=== PATIENT | female | born 1945 | race Caucasian/White ===

== ENCOUNTER 2016-09-03 10:37 | Inpatient (IN) | payer MEDICARE ==
--- NOTE | ~2016-09-03 | DS ---
Discharge Summary [facility] [address] [place]. [address] NAME: AMBER EARLY : 45 STATUS : DIS IN PAT#: [id number] AGE: 71 ADM/REG DATE : 09/03/16 MR#: [id number] REPORT SERV DATE: 09/05/16 DICTATED BY: YARA GUO DATE: 09/04/16 REPORT STATUS : Draft TRANSCRIBED BY: MODL DATE: 09/04/16 ADMISSION DATE: 09/03/2016 DISCHARGE DATE: 09/04/2016 The patient is a 71-year-old female with a history of diabetes, hypertension, and depression, who was a direct admit from her physician's office after a concerning CT finding. For further details, please refer to H and P dictated by me on 09/03/2016. The patient was sent by her primary care physician to obtain a CT secondary to abdominal pain. The abdominal CT was concerning for what represented a cecal bascule. A water soluble contrast enema was recommended. Status post procedure, the patient was recommended to have a surgical evaluation to determine the need of surgery due to findings noted on the water soluble contrast enema. Please refer to the study that was done on 09/03/2016. The patient was subsequently evaluated by Surgery from surgery evaluation. There was no indication for surgical intervention at this point, given that the patient's abdominal pain had resolved. The patient was also subsequently seen again today by Surgery and was recommended that the patient have a colonoscopy at an outpatient setting, to rule out any abnormalities. The patient has remained hemodynamically stable. She has tolerated p.o. diet. Her abdominal pain is completely resolved. Given no plans for surgical intervention at this time, the patient will be discharged home to follow up with her primary care physician, GI and Surgery as planned. Plan has been discussed with the patient who voices understanding and is agreeable with this plan. DISCHARGE DIAGNOSIS: 1. Abdominal pain. 2. Hypertension. 3. Diabetes type 2. 4. Depression. DISCHARGE EXAM: VITAL SIGNS: Blood pressure 131/66, pulse of 73, respirations of 16, and O2 saturation 98% on room air. GENERAL: The patient is sitting in bed, appears stated age, in no acute distress. HEENT: Normocephalic, atraumatic. Extraocular motors intact. Moist oral mucosa. NECK: Trachea midline and symmetric. No thyromegaly noted. No JVD present. CHEST: Nontender to palpation. CARDIOVASCULAR: Regular rate and rhythm. S1, S2. No murmurs, rubs, or gallops. LUNGS: Clear to auscultation bilaterally. No added breath sounds. No wheezing, rales, or rhonchi. ABDOMEN: Positive bowel sounds. Nontender. Nondistended. No masses palpated. EXTREMITIES: No cyanosis, no clubbing, no edema. NEUROLOGIC: Alert and oriented x3. No focal deficits appreciated. DISCHARGE MEDICATIONS: Her home medications were continued with no addition of medications. Her medication includes 1. Lisinopril 10 mg p.o. daily. 2. Trulicity 0.5 mg subcu q.7 days. 3. Metformin 1000 mg p.o. twice a day. Discharge Summary [address] [address] NAME: AMBER EARLY : 45 STATUS : DIS IN PAT#: [id number] AGE: 71 ADM/REG DATE : 09/03/16 MR#: [id number] REPORT SERV DATE: 09/05/16 DICTATED BY: YARA GUO DATE: 09/04/16 REPORT STATUS : Draft TRANSCRIBED BY: YUMIKO DATE: 09/04/16 4. Gabapentin 300 mg p.o. at bedtime. 5. Pravastatin 40 mg p.o. at bedtime. 6. Effexor XR 150 mg p.o. every morning. 7. Vitamin D 1200 International Units p.o. every morning. 8. [place] Thyroid 30 mg p.o. Wednesday, Wednesday, Wednesday, and mornings. [place] Thyroid 60 mg on Wednesday, Wednesday, and Wednesday. CONSULTANTS: Surgery was consulted. PROCEDURES: The patient had a CT abdomen and pelvis on 09/03/2016. The patient had water-soluble contrast enema on 09/03/2016. DISPOSITION: The patient will be discharged home to follow up with primary care physician. ACTIVITY: As tolerated. DIET: Diabetic diet. Greater than 30 minutes was spent coordinating care, planning discharge, dictation of note, and medication reconciliation, and providing counseling. MELINDA Yara Guo MD / [id number] CC: JULIO Meléndez M.D.
--- NOTE | ~2016-09-03 | HP ---
History And Physical [facility] [address] [place]. [address] NAME: AMBER STANTON : 45 STATUS : ADM IN [facility]#: [id number] AGE: 71 ADM/REG DATE : 09/03/16 MR#: [id number] REPORT SERV DATE: 09/03/16 DICTATED BY: YARA GUO DATE: 09/03/16 REPORT STATUS : Draft TRANSCRIBED BY: MODL DATE: 09/03/16 DATE OF ADMISSION: 09/03/2016 CHIEF COMPLAINT: Abdominal pain. HISTORY OF PRESENTING ILLNESS: Ms. Stanton is a 71-year-old female with a history of diabetes, hypertension, and depression, who was a direct admit from her physician's office. The patient states that her symptoms started over a week ago. She states she started feeling fatigued and weak. However yesterday, she started having abdominal pain, which initially she attributed to kidney stones. She has had an episode of kidney stones before. Upon presenting to her primary care physician's office, a CT scan was obtained, which noted gaseous distention of the anterior bowel and a water-soluble enema was recommended. The patient subsequently had the water-soluble contrast enema, which noted that the cecum had migrated into the upper quadrant of the abdomen, which is different from findings from 10/18/2011. The patient was, therefore, admitted under Hospitalist Service for surgical evaluation. The patient states that her pain is at 4/10 right now. She denies any other symptoms stating that other than the abdominal pain, she feels relatively well. The patient states that she is very hungry and would like something to eat at this point. She denies any nausea, any vomiting, any decreased p.o. intake. No lightheadedness, no dizziness, no fevers, no chills. REVIEW OF SYSTEMS: As noted in the HPI, 14-point review of system was done. All systems were negative except as noted in the HPI. PAST MEDICAL HISTORY: 1. Diabetes. 2. Hypertension. 3. Depression. PAST SURGICAL HISTORY: 1. Cholecystectomy. 2. Thyroidectomy. 3. Lumpectomy. 4. Rotator cuff repair. 5. Hip replacement. FAMILY HISTORY: Significant for diabetes and congestive heart failure. SOCIAL HISTORY: The patient reports a remote smoking history stating that she quit smoking over 40 years ago. She states that she drinks alcohol socially. States she has a glass of wine intermittently. The last time she had it was over two months ago. She denies illicit drug use. ALLERGIES: THE PATIENT HAS NO KNOWN DRUG ALLERGIES. History And Physical [address] [place]. [address] NAME: AMBER STANTON : 45 STATUS : ADM IN [facility]#: [id number] AGE: 71 ADM/REG DATE : 09/03/16 MR#: [id number] REPORT SERV DATE: 09/03/16 DICTATED BY: YARA GUO DATE: 09/03/16 REPORT STATUS : Draft TRANSCRIBED BY: YUMIKO DATE: 09/03/16 PHYSICAL EXAMINATION: VITAL SIGNS: Blood pressure 139/77 with a pulse of 72, respirations 16, O2 saturation 100%, temperature 97.5. GENERAL: The patient is sitting in bed, appears stated age, in no acute distress. HEENT: Normocephalic, atraumatic. Extraocular motors intact. Moist oral mucosa. Pupils round and reactive to light and accommodation. Anicteric sclerae. NECK: Trachea midline and symmetric. No JVD noted. CHEST: Nontender to palpation. CARDIOVASCULAR: Regular rate and rhythm. S1, S2. No murmurs, rubs, or gallops. LUNGS: Clear to auscultation bilaterally. No added breath sounds. ABDOMEN: Positive bowel sounds. Mild tenderness noted on deep palpation. No guarding. No rebound tenderness. EXTREMITIES: No cyanosis, no clubbing, no edema. NEUROLOGIC: Alert and oriented x3. No focal deficits appreciated. LABORATORY DATA: No labs available at this time. IMAGING: CT abdomen and pelvis without contrast, impression, bilateral intrarenal calculi. No ureteral stone or obstruction identified. The patient now has gaseous distended bowel anterior to her liver, which was not present previously. This bowel has appearance most consistent with cecum and would represent a cecal bascule. The dilation of the distended loop is up to 7.3 cm. There is no bowel wall thickening and no closed-loop obstruction demonstrated at present. Correlation with water-soluble enema could be made to confirm this impression and exclude obstruction. Water soluble contrast enema, impression, cecum is migrated into the right upper quadrant of the abdomen seen on today's CT scan. This appears to be secondary to turning at the level of the proximal ascending colon as described, although moderately distended cecum does not currently appear to be obstructed secondary to this configuration with contrast flowing freely into the cecum and near complete emptying of the cecum on postevacuation images. However, this configuration may predispose the patient to cecal bascule. Again, the cecum was in a normal position in the right lower quadrant on the CT from 10/18/2011, so just a surgical consultation. ASSESSMENT AND PLAN: 1. Abdominal pain likely secondary to migration of the cecum to the upper quadrant. Plan, we will consult Surgery and Pain Management. 2. Hypertension, controlled. 3. Diabetes type 2. We will hold metformin for now. Start sliding scale insulin. Reassess in the morning. 4. Depression. We will continue the patient's home medications. 5. Code status is full and deep vein thrombosis prophylaxis with subcu heparin. KIARA/YUMIKO Yara Guo, History And Physical [address] [address] NAME: AMBER STANTON : 45 STATUS : ADM IN [facility]#: [id number] AGE: 71 ADM/REG DATE : 09/03/16 MR#: [id number] REPORT SERV DATE: 09/03/16 DICTATED BY: YARA GUO DATE: 09/03/16 REPORT STATUS : Draft TRANSCRIBED BY: MODL DATE: 09/03/16 / [id number] CC: JULIO Meléndez M.D.
[~2016-09-03 10:37] MED LIST: AMARYL2 PO; BYETTA SC; CELEXA40 MG PO; CIP2 PO; GLUCPH PO; LEVOTHROID75 MCG PO; LIPITOR10 PO; PRIN10 PO; PYR200 PO
[2016-09-03 13:17] LABS: BUN (BLOOD UREA NITROGEN) 22 MG/DL (6-23); CALCIUM, SERUM 9.3 MG/DL (8.5-10.4); CHLORIDE, SERUM 107 MMOL/L (96-112); CO2 (CARBON DIOXIDE) 25 MMOL/L (24-34); CREATININE 1.12 MG/DL (0.55-1.02); GFR AFRICAN AMERICAN 57 ML/MIN (>=60); GFR NON AFRICAN AMERICAN 49 ML/MIN (>=60); POTASSIUM, SERUM 3.7 MMOL/L (3.5-5.3); SODIUM, SERUM 142 MMOL/L (135-148)
[2016-09-03 13:51] LABS: GLUCOSE, SERUM 146 MG/DL (60-99)
[2016-09-03 19:39] LABS: PARTIAL THROMBO TIME 25.8 SEC (22.5-37.2); PROTIME (NOT ORD) 13.2 SEC (12.0-14.5)
[2016-09-03 19:51] LABS: A/G RATIO 1.3 (0.7-1.9); ALBUMIN 4.2 G/DL (3.5-5.0); ALKALINE PHOSPHATASE 127 U/L (45-117); BUN (BLOOD UREA NITROGEN) 22 MG/DL (6-23); CALCIUM, SERUM 9.6 MG/DL (8.5-10.4); CHLORIDE, SERUM 108 MMOL/L (96-112); CO2 (CARBON DIOXIDE) 25 MMOL/L (24-34); CREATININE 1.11 MG/DL (0.55-1.02); FREE T4 0.98 NG/DL (0.76-1.46); GFR AFRICAN AMERICAN 58 ML/MIN (>=60); GFR NON AFRICAN AMERICAN 50 ML/MIN (>=60); GLOBULIN 3.3 G/DL (2.5-4.1); GLUCOSE, SERUM 165 MG/DL (60-99); POTASSIUM, SERUM 3.6 MMOL/L (3.5-5.3); SGOT(AST) 20 U/L (5-40); SGPT(ALT) 33 U/L (5-65); SODIUM, SERUM 143 MMOL/L (135-148); TOTAL PROTEIN 7.5 G/DL (6.0-8.5)
[2016-09-03 19:52] LABS: ULTRASENSITIVE TSH 0.757 MCIU/ML (0.358-3.740)
[2016-09-03 19:57] LABS: BASOPHILS 0.3 %; BASOPHILS ABSOLUTE 0.04 10/3/uL (0.0-0.16); EOSINOPHILS 1.2 %; EOSINOPHILS ABSOLUTE 0.15 10/3/uL (0.0-0.53); HEMATOCRIT 39.2 % (36.0-48.0); HEMOGLOBIN 13.1 g/dL (12.0-16.0); IMMATURE GRANULOCYTES 0.2 %; IMMATURE GRANULOCYTES ABSOLUTE 0.03 10/3/uL (0.0-0.11); LYMPHOCYTES 22.8 %; LYMPHOCYTES ABSOLUTE 2.82 10/3/uL (0.67-4.30); MEAN CORPUS HGB CONC 33.4 g/dL (32.0-36.0); MEAN CORPUSCULAR HEMOGLOB 31.3 pg (26.0-34.0); MEAN CORPUSCULAR VOLUME 93.8 fL (80-100); MEAN PLATELET VOLUME 10.8 fL (9.2-13.0); MONOCYTES 6.6 %; MONOCYTES ABSOLUTE 0.82 10/3/uL (0.21-1.20); NEUTROPHILS 68.9 %; NEUTROPHILS ABSOLUTE 8.51 10/3/uL (2.02-8.40); PLATELET COUNT 143 10/3/uL (150-400); RBC DISTRIBUTION WIDTH 13.5 % (12.0-16.0); RED CELL COUNT 4.18 10/6/uL (4.0-5.6); WHITE BLOOD CELLS 12.4 10/3/uL (4.5-10.5)
[2016-09-03 19:58] LABS: MANUAL DIFF NO %
[2016-09-03] MEDS ORDERED: TRULICITY0.75 MG/0. SC (21:13)
[2016-09-03] MEDS ORDERED: FORTAMET1000 MG PO (21:13)
[2016-09-03] MEDS ORDERED: PRIN10 PO (21:13)
[2016-09-03] MEDS ORDERED: EFFEXOR XR150 MG PO (21:14)
[2016-09-03] MEDS ORDERED: NEUR300 PO (21:14)
[2016-09-03] MEDS ORDERED: PRAVACHOL40 MG PO (21:14)
[2016-09-03] MEDS ORDERED: VITAMIN D400 UNI1 PO (21:15)
[2016-09-03] MEDS ORDERED: CALCIUM OTC PO (21:16)
[2016-09-03] MEDS ORDERED: ARMOUR THYRO30 MG PO (21:19)
[2016-09-03] MEDS ORDERED: VISINE TEARS15 ML OPH (21:20)
[2016-09-03] MEDS ORDERED: ARMOUR THYRO60 MG PO (21:20)
[2016-09-04 05:13] LABS: BASOPHILS 0.4 %; BASOPHILS ABSOLUTE 0.04 10/3/uL (0.0-0.16); EOSINOPHILS 2.3 %; EOSINOPHILS ABSOLUTE 0.24 10/3/uL (0.0-0.53); HEMATOCRIT 38.6 % (36.0-48.0); HEMOGLOBIN 12.8 g/dL (12.0-16.0); IMMATURE GRANULOCYTES 0.3 %; IMMATURE GRANULOCYTES ABSOLUTE 0.03 10/3/uL (0.0-0.11); LYMPHOCYTES 34.8 %; LYMPHOCYTES ABSOLUTE 3.66 10/3/uL (0.67-4.30); MEAN CORPUS HGB CONC 33.2 g/dL (32.0-36.0); MEAN CORPUSCULAR HEMOGLOB 31.4 pg (26.0-34.0); MEAN CORPUSCULAR VOLUME 94.8 fL (80-100); MEAN PLATELET VOLUME 9.9 fL (9.2-13.0); MONOCYTES 6.4 %; MONOCYTES ABSOLUTE 0.67 10/3/uL (0.21-1.20); NEUTROPHILS 55.8 %; NEUTROPHILS ABSOLUTE 5.87 10/3/uL (2.02-8.40); RBC DISTRIBUTION WIDTH 13.3 % (12.0-16.0); RED CELL COUNT 4.07 10/6/uL (4.0-5.6); WHITE BLOOD CELLS 10.5 10/3/uL (4.5-10.5)
[2016-09-04 05:15] LABS: MANUAL DIFF NO %; PLATELET COUNT 198 10/3/uL (150-400)
[2016-09-04 05:57] LABS: A/G RATIO 1.2 (0.7-1.9); ALBUMIN 3.7 G/DL (3.5-5.0); BUN (BLOOD UREA NITROGEN) 24 MG/DL (6-23); CALCIUM, SERUM 8.8 MG/DL (8.5-10.4); CHLORIDE, SERUM 109 MMOL/L (96-112); CO2 (CARBON DIOXIDE) 23 MMOL/L (24-34); CREATININE 1.04 MG/DL (0.55-1.02); GFR AFRICAN AMERICAN 63 ML/MIN (>=60); GFR NON AFRICAN AMERICAN 54 ML/MIN (>=60); GLUCOSE, SERUM 137 MG/DL (60-99); POTASSIUM, SERUM 3.9 MMOL/L (3.5-5.3); SGOT(AST) 15 U/L (5-40); SGPT(ALT) 30 U/L (5-65); SODIUM, SERUM 144 MMOL/L (135-148); TOTAL PROTEIN 6.7 G/DL (6.0-8.5)
[2016-09-04 05:59] LABS: ALKALINE PHOSPHATASE 113 U/L (45-117)
[2016-09-04] MEDS ORDERED: CIP5 PO (13:59)
== END 2016-09-04 18:43 | disposition home or self-care (01) | DRG 392 ==
LOC: CARDCT 10:37 → 7NO 15:57
PROVIDERS: Hospitalist; Nurse Practitioner
DX: R10.11 Right upper quadrant pain (principal); E11.9 Type 2 diabetes mellitus without complications; I10 Essential (primary) hypertension; Z79.84 Long term (current) use of oral hypoglycemic drugs; F32.9 Major depressive disorder, single episode, unspecified; Z90.49 Acquired absence of other specified parts of digestive tract; Z85.820 Personal history of malignant melanoma of skin; Z53.09 Procedure and treatment not carried out because of other contraindication
CPT/HCPCS: 36415; 74176; 74270; 80048; 80053; 81003; 82962; 83036; 84439; 84443; 85025; 85610; 85730; A9270-GY

== ENCOUNTER 2016-09-25 14:05 | Emergency (ER) | payer MEDICARE ==
[2016-09-25 13:47] LABS: BASOPHILS 0.3 %; BASOPHILS ABSOLUTE 0.03 10/3/uL (0.0-0.16); EOSINOPHILS 0.9 %; EOSINOPHILS ABSOLUTE 0.11 10/3/uL (0.0-0.53); HEMATOCRIT 41.3 % (36.0-48.0); HEMOGLOBIN 14.2 g/dL (12.0-16.0); IMMATURE GRANULOCYTES 0.3 %; IMMATURE GRANULOCYTES ABSOLUTE 0.03 10/3/uL (0.0-0.11); LYMPHOCYTES 28.5 %; LYMPHOCYTES ABSOLUTE 3.34 10/3/uL (0.67-4.30); MEAN CORPUS HGB CONC 34.4 g/dL (32.0-36.0); MEAN PLATELET VOLUME 9.9 fL (9.2-13.0); MONOCYTES 7.1 %; MONOCYTES ABSOLUTE 0.83 10/3/uL (0.21-1.20); NEUTROPHILS 62.9 %; NEUTROPHILS ABSOLUTE 7.39 10/3/uL (2.02-8.40); PLATELET COUNT 224 10/3/uL (150-400); RBC DISTRIBUTION WIDTH 13.4 % (12.0-16.0); RED CELL COUNT 4.44 10/6/uL (4.0-5.6); WHITE BLOOD CELLS 11.7 10/3/uL (4.5-10.5)
[2016-09-25 13:48] LABS: MANUAL DIFF NO %
[2016-09-25 13:58] LABS: ASCORBIC ACID (UR NOT ORDER) NEG (NEG); BILIRUBIN, URINE NEGATIVE (NEG); ER URINALYSIS TAT 0 Hrs 14 Mins; KETONE, URINE TRACE MG/DL (NEG); LEUKOCYTE ESTERASE(NOT OR NEG (NEG); NITRITE (URINE) NEG (NEG); WBC (NOT ORDERED) (RFLEX) 2 (0-5)
[2016-09-25 14:01] LABS: BUN (BLOOD UREA NITROGEN) 20 MG/DL (6-23); CALCIUM, SERUM 9.6 MG/DL (8.5-10.4); CHLORIDE, SERUM 107 MMOL/L (96-112); CO2 (CARBON DIOXIDE) 28 MMOL/L (24-34); CREATININE 1.45 MG/DL (0.55-1.02); GFR AFRICAN AMERICAN 42 ML/MIN (>=60); GFR NON AFRICAN AMERICAN 36 ML/MIN (>=60); GLUCOSE, SERUM 158 MG/DL (60-99); POTASSIUM, SERUM 3.5 MMOL/L (3.5-5.3); SODIUM, SERUM 142 MMOL/L (135-148)
[~2016-09-25 14:05] MED LIST changes: +ARMOUR THYRO30 MG PO; +ARMOUR THYRO60 MG PO; +CALCIUM OTC PO; +CIP5 PO; +EFFEXOR XR150 MG PO; +FORTAMET1000 MG PO; +NEUR300 PO; +PRAVACHOL40 MG PO; +TRULICITY0.75 MG/0. SC; +VISINE TEARS15 ML OPH; +VITAMIN D400 UNI1 PO
== END 2016-09-25 14:49 | disposition home or self-care (01) ==
LOC: ER 14:05
PROVIDERS: Nurse Practitioner
DX: D72.829 Elevated white blood cell count, unspecified (principal); R31.9 Hematuria, unspecified; Z87.891 Personal history of nicotine dependence; I10 Essential (primary) hypertension; F32.9 Major depressive disorder, single episode, unspecified; E11.9 Type 2 diabetes mellitus without complications; Z88.5 Allergy status to narcotic agent; Z79.899 Other long term (current) drug therapy; Z79.84 Long term (current) use of oral hypoglycemic drugs
CPT/HCPCS: 74176; 80048; 81001; 85025; 96374; 99284; J2405